=== PATIENT | male | born 1935 | race Caucasian/White ===

== ENCOUNTER → 2016-09-23 | Outpatient (CLI) | payer MEDICARE ==
[~2016-09-23] MED LIST: ALDACTONE25 MG PO; ASPIRIN81 M1 PO; CO Q-1010 MG; COZAAR100 MG PO; COZAAR25 MG PO; COZAAR50 MG PO; DILANTIN100 MG PO; FISH OIL1 IU; GINKO BILOBA60 MG PO; KEY-E400 IU PO; LASIX20 MG PO; LEVAQUIN 500 M500 M1 IV; SOTALOL80 MG PO; THE MEDICINE S400 IU; VITAMIN C1000 MG PO
[2016-09-23 14:18] LABS: MAGNESIUM 2.8 mg/dL (1.5-2.1); POTASSIUM 5.2 mmol/L (3.5-5.1)
[2016-09-23 14:30] LABS: VITAMIN D, 25-HYDROXY 31.6 ng/mL (30-100)
[2016-09-23 14:31] LABS: PTH INTACT 228.9 pg/mL (14.0-72.0)
[2016-09-24 09:12] LABS: MICRO ALBUMIN/CRE RATIO 109.2 (0.0-30.0)
== END | disposition home or self-care (01) ==
LOC: LAB 12:49 → US 13:00
PROVIDERS: Internal Medicine Nephrology
DX: I10 Essential (primary) hypertension (principal); N17.9 Acute kidney failure, unspecified; E55.9 Vitamin D deficiency, unspecified